=== PATIENT | female | born 1965 ===

== ENCOUNTER 2022-02-07 22:04 | Emergency (ER) | payer MEDICAID ==
[2022-02-07 22:18] VITALS: BP 196/89
[2022-02-07] MEDS ORDERED: ASPIRIN 325 MG TAB PO ONE (22:19)
--- NOTE | 2022-02-07 22:53 | XRay Report ---
CHEST 2 VIEWS INDICATION / CLINICAL INFORMATION: chest pain. COMPARISON: None available. FINDINGS: SUPPORT DEVICES: None. HEART / MEDIASTINUM: No significant abnormality. LUNGS / PLEURA: No significant pulmonary or pleural abnormality. No pneumothorax. ADDITIONAL FINDINGS: No significant additional findings. IMPRESSION: 1. No acute findings. Signer Name: George Barrios MD Signed: 02/07/2022 10:48 PM Workstation Name: [id number]
[2022-02-07 23:41] LABS: Basophils # (Auto) 0.1 K/mm3 (0.0-0.1); Basophils % (Auto) 0.8 % (0.0-1.8); Eosinophils # (Auto) 0.2 K/mm3 (0.0-0.4); Eosinophils % (Auto) 2.3 % (0.0-4.3); Hematocrit 43.4 % (30.3-42.9); Hemoglobin 14.1 gm/dl (10.1-14.3); Lymphocytes # (Auto) 2.7 K/mm3 (1.2-5.4); Mean Corpuscular HGB Conc 32 % (30-34); Mean Corpuscular Volume 83 fl (79-97); Monocytes # (Auto) 0.5 K/mm3 (0.0-0.8); Monocytes % (Auto) 5.5 % (0.0-7.3); Platelet Count 215 K/mm3 (140-440); Red Blood Count 5.21 M/mm3 (3.65-5.03); Red Cell Distribution Width 14.5 % (13.2-15.2)
[2022-02-08 00:06] LABS: Alanine Aminotransferase 14 units/L (7-56); Albumin 4.5 g/dL (3.9-5); Blood Urea Nitrogen 9 mg/dL (7-17); Calcium 10.7 mg/dL (8.4-10.2); Hemolysis Index 4
[2022-02-08 00:07] LABS: BUN/Creatinine Ratio 13
--- NOTE | 2022-02-08 14:04 | Electrocardiograph Report ---
[facility] Test Date: 2022-02-07 Test Time: 22:09:07 Pat Name: BECKY VAZQUEZ Department: Room: Gender: F [employer] Worker: OLIVERIO : 1965 Requested By: ED DOC Order Number: [id number] Reading MD: Ean Nunez Measurements Intervals [place] Rate: 76 P: 69 MI: 177 QRS: 14 QRSD: 87 T: 33 QT: 377 QTc: 425 Interpretive Statements Sinus rhythm No previous ECG available for comparison Electronically Signed On 02-08-2022 14:04:28 EDT by Ean Nunez
== END 2022-02-09 10:54 | disposition left against medical advice (07) ==
LOC: ED 02-08 12:31
DX: R07.9 Chest pain, unspecified (principal); Z53.21 Procedure and treatment not carried out due to patient leaving prior to being seen by health care provider
CPT/HCPCS: 36415; 71046; 80053; 84484; 85025; 93005